=== PATIENT | male | born 1950 | race Caucasian/White ===

== ENCOUNTER 2023-06-15 08:57 | Emergency (ER) | payer OTHER ==
[~2023-06-15] VITALS: Ht 182.9 cm; Wt 86.3 kg
[2023-06-15 09:25] VITALS: PULSE 76; RESP 18; O2SAT 96
[2023-06-15 09:37] LABS: Basophils # (auto) 0.1 10 ^3/uL (0-0.2); Eosinophils # (auto) 0 10 ^3/uL (0-0.8); Eosinophils % (auto) 0.1 % (0.0-7.0); Hemoglobin 9.8 g/dL (13.5-17.5); Red Blood Cells 2.75 10^6/uL (4.5-5.90)
[2023-06-15 09:39] LABS: Hematocrit 29.2 % (41.0-53.0); Lymphocytes # (auto) 1.8 10 ^3/uL (0.4-5.4); Lymphocytes % (auto) 15.1 % (10.0-50.0); Mean Corpuscular Hemoglobin 35.7 pg (28.0-32.0); Mean Corpuscular Hgb Conc. 33.6 g/dL (32.0-36.0); Mean Corpuscular Volume 106.3 fL (80.0-100.0); Monocytes # (auto) 0.9 10 ^3/uL (0-1.3); Monocytes % (auto) 7.2 % (0.0-12.0); Neutrophils # (auto) 9.1 10 ^3/uL (1.6-8.6); Neutrophils % (auto) 76.6 % (37.0-80.0); Red Cell Distribution Width 14.2 % (11.8-14.3); White Blood Cell 11.8 10^3/uL (4.4-10.8)
[2023-06-15 09:54] LABS: Chloride 107 mmol/L (98-107); Potassium 4.9 mmol/L (3.5-5.1); Sodium 142 mmol/L (136-145)
[2023-06-15 09:55] LABS: Anion Gap 12 (5-15); Carbon Dioxide 23 mmol/L (20-30)
[2023-06-15 09:56] LABS: Calcium 8.6 mg/dL (8.5-10.1)
[2023-06-15 10:00] LABS: Glucose 147 mg/dL (74-106)
[2023-06-15 10:01] LABS: BUN/Creatinine Ratio 35.5 (10.0-20.0); Blood Urea Nitrogen 39 mg/dL (9-23)
[2023-06-15] MEDS ORDERED: LIDOCAINE 1% HCL (LOCAL ANESTH.) INJ 20ML MDV IJ ONE (11:00)
[2023-06-15] MEDS ORDERED: PANTOPRAZOLE 40 MG/10 ML VIAL INJ IV ONE (12:00)
[2023-06-15 12:30] LABS: Urine Epithelial Cast None Seen /hpf (<5)
[2023-06-15 12:40] LABS: Urine Bacteria NONE SEEN /hpf (None Seen); Urine Blood TRACE /uL (Negative); Urine Clarity Clear (Clear); Urine Color Yellow (Yellow); Urine Hyaline Cast FEW /lpf (0 - 2); Urine Mucus FEW (None Seen); Urine Protein, UAD TRACE (Negative); Urine Specific Gravity 1.027 (1.001-1.035); Urine Urobilinogen Normal (Negative); Urine WBC 2 /hpf (0 - 3); Urine pH 5.5 (5.0-8.0)
[2023-06-15 13:09] VITALS: BP 122/59; PULSE 105; RESP 20; TEMP 98.1; O2SAT 98
== END 2023-06-15 13:21 | disposition short-term general hospital (02) ==
LOC: ER 08:57 → EDBD 08:57 → ER 13:21
DX: S09.8XXA Other specified injuries of head, initial encounter (principal); R53.1 Weakness; E11.65 Type 2 diabetes mellitus with hyperglycemia; J93.9 Pneumothorax, unspecified
CPT/HCPCS: 32557; 36415; 70450; 71045; 72192; 80048; 81001; 84484; 85025; 93005; 96374; 99285; C9113; J2001